=== PATIENT | male | born 1950 | race Hispanic/Latino ===

== ENCOUNTER 2017-07-05 07:05 | Day surgery (SDC) | payer MEDICARE, OTHER ==
[2017-07-05] MEDS ORDERED: Lactated Ringer's 500 ML IV ONE (07:51)
[2017-07-05 08:19] VITALS: TEMP 97
[2017-07-05] MEDS ORDERED: Lidocaine PF 2% (5 ml) Inj (For Cardiac Arrhy) IV ONE (09:03)
[2017-07-05] MEDS ORDERED: Propofol 10 mg/ml Inj (20 ML) ONE (09:03)
[2017-07-05] MEDS ORDERED: Midazolam 2 MG/2 ML VIAL ONE (09:03)
[2017-07-05 10:05] VITALS: BP 117/70; PULSE 79; RESP 19; O2SAT 97
== END 2017-07-05 10:07 | disposition home or self-care (01) ==
LOC: H.ENDO 07:05
PROVIDERS: ATTEND Internal Medicine Gastroenterology
DX: Z12.11 Encounter for screening for malignant neoplasm of colon (principal); F32.9 Major depressive disorder, single episode, unspecified; K64.1 Second degree hemorrhoids; K63.89 Other specified diseases of intestine; K29.50 Unspecified chronic gastritis without bleeding; K21.0 Gastro-esophageal reflux disease with esophagitis
CPT/HCPCS: 45380; 88305; J2250; J2704; J7120